=== PATIENT | female | born 2000 | race Caucasian/White ===

== ENCOUNTER 2021-01-05 20:39 | Emergency (ER) | payer BC ==
[~2021-01-05] VITALS: Ht 165.1 cm; Wt 93.0 kg
== END 2021-01-05 22:34 | disposition home or self-care (01) ==
LOC: ED 20:39
DX: T78.1XXA Other adverse food reactions, not elsewhere classified, initial encounter (principal); L27.2 Dermatitis due to ingested food; R05 Cough; R09.89 Other specified symptoms and signs involving the circulatory and respiratory systems
CPT/HCPCS: 96374; 96375; 99283-25; J1200; J2930